=== PATIENT | female | born 1980 | race Caucasian/White ===

== ENCOUNTER → 2019-02-09 | Outpatient (CLI) | payer OTHER | LOC: RAD 09:19 | DX: R05 Cough (principal) ==

== ENCOUNTER → 2019-02-24 | Outpatient (CLI) | payer OTHER | LOC: RAD 10:45 | DX: Z12.31 Encounter for screening mammogram for malignant neoplasm of breast (principal); J18.9 Pneumonia, unspecified organism ==

== ENCOUNTER 2019-08-07 11:14 | Emergency (ER) | payer OTHER ==
[~2019-08-07] VITALS: Ht 165.1 cm; Wt 136.1 kg
[2019-08-07 12:16] LABS: ABSOLUTE NEUTROPHILS 10.2 thou/uL (1.4-8.2); BASOPHILS 0.4 % (0.0-2.0); EOSINOPHILS 1.7 % (0.0-3.0); HEMOGLOBIN 11.9 gm/dL (12.0-15.0); LYMPHOCYTES 18.2 % (24.0-44.0); MCH 31.8 pg (26.0-34.0); MCHC 33.9 g/dL (28.0-37.0); MCV 93.9 fL (80.0-100.0); MONOCYTES 5.4 % (1.0-8.0); PLATELET COUNT 291 thou/uL (150-400); POLYS 74.3 % (36.0-66.0); RBC 3.73 mil/uL (4.20-5.00); RDW 14.4 % (10.5-14.5); WBC 13.7 thou/uL (4.0-11.0)
[2019-08-07 12:19] LABS: ANION GAP 12 mmol/L (7-16); BUN 7 mg/dL (7-18); CALCIUM 9.2 mg/dL (8.5-10.1); CHLORIDE 97 mmol/L (98-107); CO2 24 mmol/L (21-32); CREATININE 0.9 mg/dL (0.6-1.0); GLUCOSE 114 mg/dL (74-106); POTASSIUM 3.4 mmol/L (3.5-5.1); SODIUM 133 mmol/L (136-145)
[2019-08-07 12:29] LABS: ALBUMIN 3.2 g/dL (3.4-5.0); SGOT 33 U/L (15-37); SGPT 62 U/L (30-65); TOTAL BILIRUBIN 0.2 mg/dL (<0.1-1.0); TOTAL PROTEIN 7.4 g/dL (6.4-8.2); TROPONIN-I <0.06 ng/mL (<0.06)
[2019-08-07] MEDS ORDERED: CLONAZEPAM 0.50.5 M1 PO (12:49)
[2019-08-07] MEDS ORDERED: SYNTHROID50 MCG PO (12:49)
[2019-08-07] MEDS ORDERED: PAXIL20 MG PO (12:49)
[2019-08-07] MEDS ORDERED: ONDANSETRON HCL4 M2 PO (13:51)
[2019-08-07] MEDS ORDERED: PROAIR HFA8.5 GM INH (13:51)
[2019-08-07] MEDS ORDERED: ZPAK PO (13:51)
[2019-08-07] MEDS ORDERED: NORCO 5-325 TA1 EAC1 PO ×2 (13:51→14:49)
[2019-08-07 15:14] VITALS: BP 125/70
--- NOTE | 2019-08-08 10:41 | EKG ---
[facility] [place] [address] ELECTROCARDIOGRAM REPORT Name: ARNEL CRAWFROD Room #: DEP [facility].#: [id number] Admission: 08/07/19 Attend Phys: Discharge: 08/07/19 Date of : 76 Report #: [id number] THIS REPORT FOR: cc: Raul Galindo James A. DO Lundgren, Craig H. MD [facility] THIS REPORT FOR: //name// [facility] ED Test Date: 2019-08-07 Test Time: 11:28:53 Pat Name: ARNEL CRAWFORD Department: Room: Gender: [employer] Director: JEFFY : 1980 Requested By: Sandra Lynn Order Number: [id number] MD: Nestor Card Measurements Intervals Miles Rate: 112 P: 57 IN: 140 QRS: -12 QRSD: 104 T: 27 QT: 331 QTc: 452 Interpretive Statements Sinus tachycardia RSR' in V1 or V2, right VCD No previous ECG available for comparison Electronically Signed On 08-08-2019 10:40:08 CDT by Nestor Card [email or web address] <ELECTRONICALLY SIGNED> By: Nestor Card MD, FAC 08/08/19 1040 1128 [id number] Nestor Card MD, [facility] /EPI
== END 2019-08-07 15:14 | disposition home or self-care (01) ==
LOC: ER 11:14
PROVIDERS: Physician Assistant
DX: J18.9 Pneumonia, unspecified organism (principal); R11.2 Nausea with vomiting, unspecified; R19.7 Diarrhea, unspecified; R06.02 Shortness of breath; R50.9 Fever, unspecified; Z03.818 Encounter for observation for suspected exposure to other biological agents ruled out; Z79.899 Other long term (current) drug therapy; Z88.6 Allergy status to analgesic agent